=== PATIENT | male | born 1995 | race Caucasian/White ===

== ENCOUNTER 2022-10-19 16:51 | Emergency (ER) | payer SELFPAY ==
[~2022-10-19] VITALS: Ht 177.8 cm; Wt 79.0 kg
[2022-10-19 22:06] VITALS: BP 114/66
[2022-10-19] MEDS ORDERED: TOPUD MT (22:07)
[2022-10-19] MEDS ORDERED: ACETAMINOPHEN 325MG TABLET PO ONE (22:15)
== END 2022-10-19 22:30 | disposition home or self-care (01) ==
LOC: ER 16:51
DX: J06.9 Acute upper respiratory infection, unspecified (principal); F17.200 Nicotine dependence, unspecified, uncomplicated
CPT/HCPCS: 71045; 99283